=== PATIENT | male | born 1955 | race Asian ===

== ENCOUNTER 2018-10-13 08:05 | Outpatient (CLI) | payer OTHER ==
[2018-10-11 16:05] LABS: CALCIUM 9.6 mg/dL (8.4-11.0); CREATININE 0.92 mg/dL (0.55-1.30); POTASSIUM 4.2 mmol/L (3.5-5.1)
[2018-10-13] MEDS ORDERED: DIATR MEGLU/DIATRIZ SOD 30 ML SOLUTION PO ONE (08:31)
[2018-10-13] MEDS ORDERED: IOHEXOL 100 ML IV ONE (10:00)
== END 2018-10-13 19:16 | disposition home or self-care (01) ==
LOC: SLB 08:05
DX: K57.90 Diverticulosis of intestine, part unspecified, without perforation or abscess without bleeding (principal); R31.29 Other microscopic hematuria; N40.0 Benign prostatic hyperplasia without lower urinary tract symptoms; N28.1 Cyst of kidney, acquired
CPT/HCPCS: 36415; 74178; 80048; Q9964; Q9967

== ENCOUNTER 2018-12-05 09:39 | Outpatient (CLI) | payer OTHER ==
[2018-12-05 11:12] LABS: CALCIUM 9.1 mg/dL (8.4-11.0); CREATININE 0.94 mg/dL (0.55-1.30); POTASSIUM 4.1 mmol/L (3.5-5.1)
== END 2018-12-05 21:42 | disposition home or self-care (01) ==
LOC: SCA 09:39
PROVIDERS: ATTEND Specialist
DX: I35.1 Nonrheumatic aortic (valve) insufficiency (principal); I11.9 Hypertensive heart disease without heart failure
CPT/HCPCS: 36415; 80048; 93306

== ENCOUNTER 2019-01-24 12:41 | Outpatient (CLI) | payer OTHER ==
[2019-01-24] MEDS ORDERED: DIATR MEGLU/DIATRIZ SOD 30 ML SOLUTION PO ONE (12:56)
== END 2019-01-24 21:16 | disposition home or self-care (01) ==
LOC: SCT 12:41
PROVIDERS: ATTEND Surgery
DX: K57.90 Diverticulosis of intestine, part unspecified, without perforation or abscess without bleeding (principal); N28.1 Cyst of kidney, acquired
CPT/HCPCS: 74176; Q9964

== ENCOUNTER 2019-06-08 08:36 | Outpatient (CLI) | payer OTHER | END 2019-06-08 14:00 | disposition home or self-care (01) | LOC: SUS 08:36 | PROVIDERS: ATTEND Surgery | DX: N28.1 Cyst of kidney, acquired (principal) | CPT/HCPCS: 76700-TC ==

== ENCOUNTER 2019-06-12 09:17 | Outpatient (CLI) | payer OTHER | END 2019-06-12 20:51 | disposition home or self-care (01) | LOC: SMI 09:17 | PROVIDERS: ATTEND Surgery | DX: K80.80 Other cholelithiasis without obstruction (principal); N28.1 Cyst of kidney, acquired | CPT/HCPCS: 74181 ==

== ENCOUNTER 2019-12-02 17:56 | Emergency (ER) | payer OTHER ==
[~2019-12-02] VITALS: Ht 154.9 cm; Wt 97.5 kg
[2019-12-02 18:23] VITALS: BP_SYST 145
--- NOTE | 2019-12-02 19:15 | NUR ---
Dr. Huerta bedside for pt eval
--- NOTE | 2019-12-02 19:15 | NUR ---
Patient to ER bed 7 to gown for evaluation. Side rails up.
--- NOTE | 2019-12-02 19:19 | NUR ---
Pt BIB family to ED with history of glaucoma and bilateral eye surgery, presenting with bilateral eye itchiness since ~2 hours prior to arrival. He believes symptoms are due to having touched items outside and rubbing his eyes afterwards No other complaints VSS no s/s of acute distress Resting on gurney rails up
[2019-12-02 19:24] VITALS: BP_SYST 142
--- NOTE | 2019-12-02 19:24 | NUR ---
Patient given written and verbal discharge instructions and verbalizes understanding. ER MD discussed with patient the results and treatment provided. Patient in stable condition. ID arm band removed. Rx of Zyrtec and Tobradex eyedrop given. Patient educated on pain management and to follow up with PMD. Pain Scale 0/10 Opportunity for questions provided and answered. Medication side effect fact sheet provided.
--- NOTE | 2019-12-02 19:30 | NUR ---
Escobar foster in [facility] - 12/02/19 at 1933 by AURELIO Patient to bed [facility] for evaluation. Side rails up.
--- NOTE | 2019-12-02 19:32 | NUR ---
Escobar foster in [facility] - 12/02/19 at 1933 by AURELIO Lab at bedside for blood draw, well tolerated
== END 2019-12-02 19:24 | disposition home or self-care (01) ==
LOC: SED 17:56
DX: H10.89 Other conjunctivitis (principal); I10 Essential (primary) hypertension; G47.00 Insomnia, unspecified; Z88.0 Allergy status to penicillin
CPT/HCPCS: 99283

== ENCOUNTER 2020-12-11 17:41 | Inpatient (IN) | payer OTHER, SELFPAY ==
[~2020-12-11] VITALS: Ht 154.9 cm; Wt 108.0 kg
[2020-12-11 17:41] VITALS: BP_SYST 160
[~2020-12-11 17:41] MED LIST: ASCO500T20 PO; ASPI-1393 PO; LISI40TA4 PO; PRO40 PO; SERT50TA12 PO; VITD2000 PO; ZINC220T4 PO
--- NOTE | 2020-12-11 17:41 | NUR ---
BROUGHT BACK TO BED #3 IMMEDIATELY, UPON ARRIVAL VIA WHEELCHAIR, AT BEDSIDE. PLACED IN BED #3 AND TRIAGED. REPORT GIVEN TO THAIS
[2020-12-11] MEDS ORDERED: ASPIRIN 81 MG TAB.CHEW PO ONE (17:45)
[2020-12-11] MEDS ORDERED: NITROGLYCERIN 1 INCH (GM) OINT. TP ONE (17:45)
[2020-12-11] MEDS ORDERED: ONDANSETRON HCL 4 MG/2 ML VIAL IVP ONE (17:45)
[2020-12-11] MEDS ORDERED: MORPHINE 2 MG/ML INJ. SYRINGE IVP ONE ×2 (17:45→20:00)
[2020-12-11] MEDS ORDERED: NACL 0.9% 1,000 ML IV ONE (17:45)
[2020-12-11 18:08] LABS: BASOPHILS # (AUTO) 0.1 K/uL (0.0-0.2); BASOPHILS % (AUTO) 1.2 % (0.0-2.0); EOSINOPHILS # (AUTO) 0.1 K/uL (0.0-0.4); EOSINOPHILS % (AUTO) 2.3 % (0.0-4.0); HEMATOCRIT 39.4 % (36-54); HEMOGLOBIN 12.9 g/dL (14.0-18.0); LYMPHOCYTES # (AUTO) 2.1 K/uL (1.0-5.5); LYMPHOCYTES % (AUTO) 33.4 % (20.5-51.5); MEAN CORPUSCULAR HEMOGLOBIN 30 pg (27-31); MEAN CORPUSCULAR HGB CONC 33 % (32-36); MEAN CORPUSCULAR VOLUME 92 fL (79.0-98.0); MONOCYTES # (AUTO) 0.4 K/uL (0.0-1.0); MONOCYTES % (AUTO) 7.2 % (1.7-9.3); NEUTROPHILS # (AUTO) 3.5 K/uL (1.8-7.7); NEUTROPHILS % (AUTO) 55.9 % (40.0-70.0); PLATELET COUNT (AUTO) 260 K/uL (130-430); RED BLOOD CELL COUNT(AUTO) 4.27 MIL/uL (4.2-6.2); RED CELL DISTRIBUTION WIDTH 16.8 % (9.0-15.0); WHITE BLOOD COUNT (AUTO) 6.2 K/uL (4.8-10.8)
--- NOTE | 2020-12-11 18:09 | NUR ---
PROTABLE CXR DONE AT [facility].
[2020-12-11] MEDS ORDERED: PANTOPRAZOLE SODIUM 40 MG/VIAL (PROTONIX) IVP ONE (18:15)
[2020-12-11 18:18] LABS: ANION GAP 7 (5-15); CALCIUM 9.3 mg/dL (8.4-11.0); CHLORIDE 104 mmol/L (98-107); GLUCOSE 121 mg/dL (70-99); POTASSIUM 3.7 mmol/L (3.5-5.1); SODIUM SERUM 140 mmol/L (136-145); UREA NITROGEN, BLOOD 9 mg/dL (8-21)
[2020-12-11 18:21] LABS: GFR AFRICAN AMERICAN 86 mL/min (>90)
[2020-12-11 18:26] LABS: INR 0.9 (0.80-1.20); PROTHROMBIN TIME 9.6 SECS (9.5-12.5)
[2020-12-11 18:30] LABS: ALANINE AMINOTRANSFERASE 1109 U/L (12-78); ALBUMIN 3.6 g/dL (3.4-4.8); ASPARTATE AMINOTRANSFERASE 719 U/L (10-37); TOTAL BILIRUBIN 3.1 mg/dL (0.0-1.0)
--- NOTE | 2020-12-11 18:34 | NUR ---
DR ARAGON IN TO REASSESS
--- NOTE | 2020-12-11 18:35 | NUR ---
AT BEDSIDE, PT CALM, ALERT, CLEAR MENTATION AND SPEECH, COMMUNICATES IN CALM, FULL COMPLETE SENTNECES, SKIN WARM AND DRY. SR ON MONITOR NO ECTOPY. RESP UNLABORED,
--- NOTE | 2020-12-11 19:06 | NUR ---
AT BEDSIDE, PT CALM, STATES FELLING BETTER, RESP UNLABORED. PAIN 6/
--- NOTE | 2020-12-11 19:13 | NUR ---
CONSENT SIGNED FOR CTA
--- NOTE | 2020-12-11 19:22 | NUR ---
BEDSIDE REPORT TAKEN FROM RESEARCH TECHNOLOGISTTREY PLASCENCIA
[2020-12-11] MEDS ORDERED: IOHEXOL 350 mgI/mL, 150 ML INFUS..BTL IV ONE (19:30)
[2020-12-11] MEDS ORDERED: hydrALAZINE HCL 20 MG/ML VIAL IVP PRN (20:45)
[2020-12-11] MEDS ORDERED: ONDANSETRON HCL 4 MG/2 ML VIAL IVP PRN (20:45)
[2020-12-11] MEDS ORDERED: IPRATROPIUM/ALBUTEROL SULFATE 3 ML AMPUL.NEB (DUONEB) INH PRN (20:45)
--- NOTE | 2020-12-11 21:10 | NUR ---
BEDSIDE PRABHU COVID SWAB PERFORMED SAMPLE SENT TO LAB PT TOLERATED WELL
--- NOTE | 2020-12-11 22:00 | NUR ---
PT RESTING QUIETLY IN BED VITALS STABLE WILL CONTINUE TO MONITOR
--- NOTE | 2020-12-11 22:55 | NUR ---
Patient will be admitted to care of MD Cruz SHARIF. Admitted to TELE unit. Will go to room 109-C. Belongings TAKEN HOME BY PT FAMILY MEMEBR BEFORE ABLE TO INVENTORY. Complete and up to date summary report printed. SBAR report given at bedside with opportunity for questions TO LEAD COATER TORIBIO.
--- NOTE | 2020-12-11 23:05 | NUR ---
ADMISSION NOTE Received patient from ER via gurney. Patient admitted with diagnosis of pancreatitis. Patient is awake, alert, oriented X 4. Patient oriented to hospital room, call light, toileting, pain management and safety-teach back done. Patient informed that Opal/Becca will be his nurse and that their room number is 109C. Personal belongings checked and Belongings List documented. Call light within reach.
[2020-12-11 23:11] VITALS: BP_SYST 115
[2020-12-11] MEDS: D5/0.45 NS 1,000 ML IV SCH (23:23)
[2020-12-11] MEDS ORDERED: TAMS-11 PO (23:25)
--- NOTE | 2020-12-12 | NUR ---
RN Rounds VSS. Pt is sleeping with BIPAP on.
[2020-12-12 00:48] VITALS: BP_SYST 115
--- NOTE | 2020-12-12 03:17 | NUR ---
CONSULTATION PAGED/CALLED Reason for Consultation: ACUTE PANCREATITIS Person Who was Notified: CATHI Consulting Physician: DR. DUMONT- DR. REGALADO IS ONCALL Tablet Technician Specialty: GI Ordering Physician: DR. LOWE
[2020-12-12] MEDS: MORPHINE 4 MG/ML INJ. SYRINGE IVP PRN ×4 (04:30→22:54)
--- NOTE | 2020-12-12 04:30 | NUR ---
Pain med given for pain 7/10 in abdomen. Will follow up
--- NOTE | 2020-12-12 06:46 | NUR ---
Closing Note Pt awake and alert resting in bed A&O x4. IVF running on RAC 18G at ordered rate. Pt breathing nonlabored to O2 via 1LNC. Pt remain NPO per orders. Pt educated regarding call light. Pt using urinal. Bed locked in lowest position. Will continue to monitor until care endorsed to dayshift RN.
[2020-12-12 07:10] LABS: BASOPHILS % (AUTO) 0.2 % (0.0-2.0); EOSINOPHILS % (AUTO) 0.4 % (0.0-4.0); HEMATOCRIT 36.9 % (36-54); HEMOGLOBIN 12.1 g/dL (14.0-18.0); LYMPHOCYTES # (AUTO) 1.2 K/uL (1.0-5.5); LYMPHOCYTES % (AUTO) 15.4 % (20.5-51.5); MEAN CORPUSCULAR HEMOGLOBIN 31 pg (27-31); MEAN CORPUSCULAR HGB CONC 33 % (32-36); MEAN CORPUSCULAR VOLUME 93 fL (79.0-98.0); MONOCYTES # (AUTO) 0.5 K/uL (0.0-1.0); MONOCYTES % (AUTO) 6.7 % (1.7-9.3); NEUTROPHILS # (AUTO) 5.8 K/uL (1.8-7.7); NEUTROPHILS % (AUTO) 77.3 % (40.0-70.0); PLATELET COUNT (AUTO) 220 K/uL (130-430); RED BLOOD CELL COUNT(AUTO) 3.97 MIL/uL (4.2-6.2); RED CELL DISTRIBUTION WIDTH 16.8 % (9.0-15.0); WHITE BLOOD COUNT (AUTO) 7.5 K/uL (4.8-10.8)
--- NOTE | 2020-12-12 07:10 | NUR ---
opening note received sbar from night RN, patient in bed respirations even, non labored bed in low and locked position call light within reach,
[2020-12-12 07:35] LABS: ALBUMIN 3.2 g/dL (3.4-4.8); CALCIUM 8.7 mg/dL (8.4-11.0); CREATININE 1.11 mg/dL (0.55-1.30)
[2020-12-12 08:00] VITALS: BP_SYST 120
--- NOTE | 2020-12-12 08:00 | NUR ---
nurse note obtained patient vs, patient in bed, respirations even, non labored bed in low and locked position call light within reach,
[2020-12-12 08:09] LABS: TOTAL BILIRUBIN 1.3 mg/dL (0.0-1.0)
--- NOTE | 2020-12-12 08:52 | NUR ---
critical paged Dr Rosa regarding critical lab lipase [phone]
--- NOTE | 2020-12-12 08:56 | NUR ---
GI MD DR REGALADO WAS CALLED, RE: CRITICAL LABS, SPOKE TO RAMÍREZ.
[2020-12-12] MEDS: D5/0.45 NS 1,000 ML IV SCH ×3 (09:47→22:31)
--- NOTE | 2020-12-12 10:00 | NUR ---
NURSE NOTE PATIENT COMPLAINING OF PAIN 7- REPOSITIONED PATIENT, PROVIDED MEDICATION
--- NOTE | 2020-12-12 10:10 | NUR ---
critical lab informed dr Rosa of critical lab, lipase, [phone], no new orders received
--- NOTE | 2020-12-12 12:00 | NUR ---
NURSE NOTE PATIENT IN BED, RESPIRATIONS EVEN NON LABORED BED IN LOW AND LOCKED POSITION CALL LIGHT WITHIN REACH
[2020-12-12 12:16] VITALS: BP_SYST 139
--- NOTE | 2020-12-12 16:00 | NUR ---
NURSE NOTE PATIENT IN BED, RESPIRATIONS EVEN, NON LABORED, BED IN LOW AND LOCKED POSITION CALL LIGHT WITHIN REACH, IVF RUNNING ORDERED
[2020-12-12 16:17] VITALS: BP_SYST 142
--- NOTE | 2020-12-12 17:40 | NUR ---
ATTENDNG Leonardo GARCIA DR WAS CALLED, RE: SURGICAL CONSULT. LEFT A VOICE MESSAGE ON HIS CP AND OFFICE.
--- NOTE | 2020-12-12 18:04 | NUR ---
Dietitian Recommendations * Consider early EN support as tolerated or TPN/PPN support within 2 days LP, RD Please refer to Nutrition Assessment for details. Addendum: 12/12/20 at [address] Amended: Links added.
--- NOTE | 2020-12-12 18:36 | NUR ---
nurse note spoke with dr Nolan, informed him that Dr Rosa would like a surgical consult on the patient, new orders received
--- NOTE | 2020-12-12 18:56 | NUR ---
CONSULTATION PAGED/CALLED Reason for Consultation: Pancreatitis Person Who was Notified: Cari Consulting Physician: Dr. Durham Tanning Solution Maker Specialty: surgeon Ordering Physician: Dr. Redd
--- NOTE | 2020-12-12 19:19 | NUR ---
closing note provided sbar to night RN, patient in bed respirations even, non labored, bed in low and locked position, call light within reach, ivf's running as ordered, endorsed care to night RN
--- NOTE | 2020-12-12 19:30 | NUR ---
Opening notes/spoke with Dr. Nolan Received report. Patient is resting in bed, no signs of distress noted. Breathing even and unlabored on 2 L NC. IV patent and intact, infusing fluids. Spoke with Dr. Nolan, informed MD that patient needs medication for breakthrough pain. MD changed frequency of current PRN and new orders received. MD wants patient to be on continuous pulse ox due to patient having sleep apnea and is on narcotics. Orders input by RN.
[2020-12-12] MEDS ORDERED: NALOXONE HCL 0.4 MG/ML AMP (NARCAN) IVP PRN (19:45)
[2020-12-12 20:00] VITALS: BP_SYST 160
--- NOTE | 2020-12-12 21:05 | NUR ---
IV removed Patient complains of pain to RAC IV. IV removed. Catheter intact and discarded. Fluids resumed on Left Hand 22 gauge. Patient is ambulatory with steady gait. No signs of distress noted.
[2020-12-13] VITALS: BP_SYST 140
--- NOTE | 2020-12-13 01:00 | NUR ---
CPAP Pt placed on CPAP per patient request. No signs of distress noted. Breathing even and unlabored. No other needs. Call light with the patient. Safety precautions in place.
[2020-12-13] MEDS: MORPHINE 4 MG/ML INJ. SYRINGE IVP PRN ×3 (05:14→16:19)
--- NOTE | 2020-12-13 06:52 | NUR ---
Closing notes Patient is resting in bed, no signs of distress noted. Breathing even and unlabored on 2 L NC. IV patent and intact, infusing fluids. No complaints of pain at this time. NPO status maintained. Awaiting surgical consult, patient aware. All needs met throughout the shift. Call light with the patient. Safety precautions in place. Will endorse care to day shift RN.
--- NOTE | 2020-12-13 07:35 | NUR ---
OPENING NOTES: RECEIVED PATIENT ON GIS ANALYST DEVELOPER NURSE. PATIENT IS AWAKE LAYING DOWN IN BED. PATIENT IS TOLERATING OXYGEN ON 2L NASAL CANNULA WITH NO DISTRESS NOTED. IV LINE PATENT AND INTACT WITH NO SIGNS OF INFILTRATION NOTED. PATIENT DENIES PAIN AT THE MOMENT. PATIENT IN STABLE CONDITION. SAFETY, FALL, AND ASPIRATION PRECAUTIONS ARE IN PLACE. BED LOCKED IN LOWEST POSITION WITH CALL LIGHT IN REACH. WILL CONTINUE TO MONITOR PATIENT FOR ANY CHANGES.
[2020-12-13 08:00] VITALS: BP_SYST 155
[2020-12-13 08:30] LABS: BILIRUBIN,DIRECT 0.4 mg/dL (0.0-0.3); TOTAL BILIRUBIN 1.1 mg/dL (0.0-1.0)
[2020-12-13] MEDS: D5/0.45 NS 1,000 ML IV SCH ×2 (08:32→21:06)
[2020-12-13 11:07] LABS: HEPATITIS A AB, IgM Negative (Negative); HEPATITIS B CORE AB, IgM Negative (Negative); HEPATITIS B SURFACE AG Negative (Negative)
--- NOTE | 2020-12-13 11:34 | NUR ---
PAGED FLORIAN RAMOS PAGED AT [phone] SPOKE WITH NIDA.
[2020-12-13 12:23] VITALS: BP_SYST 163
--- NOTE | 2020-12-13 14:20 | NUR ---
SPOKE TO DR. LOWE AND PHARMACY INSPITE OF PATIENT ALLERGY TO PCN IS OK TO GIVE ROCEPHIN IV ORDERED.
--- NOTE | 2020-12-13 14:22 | NUR ---
IV INSERTION: PERIPHERAL IV INSERTION DONE AT LEFT ARM GAUGE 22. ASEPTIC TECNIQUE OBSERVED. PATIENT TOLERATED IT WELL. BACK FLOW OF BLOOD NOTED. FLUSHING DONE. NO PAIN OR INFILTRATION ON THE SITE. WILL CONTINUE TO MONITOR PATIENT.
[2020-12-13] MEDS: cefTRIAXone 1 GM IVPB PREMIX 50 ML IV SCH (15:59)
[2020-12-13 16:11] VITALS: BP_SYST 152
--- NOTE | 2020-12-13 18:40 | NUR ---
CLOSING NOTES: PATIENT IS AWAKE LAYING DOWN IN BED. PATIENT IS TOLERATING OXYGEN ON 2L NASAL CANNULA WITH NO DISTRESS NOTED. IV LINE PATENT AND INTACT WITH NO SIGNS OF INFILTRATION NOTED. PATIENT DENIES PAIN AT THE MOMENT. PATIENT IN STABLE CONDITION. SAFETY, FALL, AND ASPIRATION PRECAUTIONS REMAINED IN PLACE. BED LOCKED IN LOWEST POSITION WITH CALL LIGHT IN REACH. WILL ENDORSE PATIENT CARE ON ONCOMING INSURANCE FOLLOW UP REPRESENTATIVE NURSE.
[2020-12-13] MEDS ORDERED: INSULIN REGULAR, HUMAN 100 UNITS/ML, 10 ML VIAL (humuLIN R) SUBCUT PRN (19:00)
[2020-12-13] MEDS ORDERED: DEXTROSE 50% JECT 50 ML DISP.SYRIN IVP PRN (19:00)
[2020-12-13] MEDS ORDERED: *PPN PER PHARMACY XX PRN (19:00)
--- NOTE | 2020-12-13 19:30 | NUR ---
INITIAL NOTE: RECEIVED REPORT FROM ESTEFANY RN. PATIENT IS SITTING UP AT BED. NO ACUTE DISTRESS. EVEN AND NONLABORED RESPIRATIONS ON ROOM AIR. IV SITE IS PATENT AND INTACT. BED IS LOCKED AT LOWEST POSITION. SIDE RAILS UP. CALL LIGHT IS WITH PATIENT. SAFETY AND FALL PRECAUTIONS IN PLACE. WILL CONTINUE WITH PLAN OF CARE.
[2020-12-13 20:00] VITALS: BP_SYST 143
--- NOTE | 2020-12-13 21:43 | NUR ---
IV RE-INSERTION: Complaining of pain to IV site. Restarted on RIGHT FOREARM #22. Successful after 1 attempts. Resumed current IVF of D5 1/2NS and regulated @ 100 per hour. Will observe for any signs of infiltration.
--- NOTE | 2020-12-13 23:49 | NUR ---
ROUNDS: PATIENT IS RESTING IN BED. FINGERSTICK AND MIDNIGHT VITALS DONE AT THIS TIME. RESPIRATIONS ARE EVEN AND NONLABORED ON ROOM AIR. CALL LIGHT IS WITH PATIENT. SAFETY AND FALL PRECAUTIONS IN PLACE.
[2020-12-14] VITALS: BP_SYST 143
--- NOTE | 2020-12-14 02:15 | NUR ---
ROUNDS: PATIENT REQUESTED A WARM BLANKET AT THIS TIME. NO ACUTE DISTRESS. BREATHING IS EVEN AND UNLABORED ON ROOM AIR. CALL LIGHT IS WITH PATIENT. SAFETY AND FALL PRECAUTIONS IN PLACE.
--- NOTE | 2020-12-14 02:30 | NUR ---
CONSULT: CONSULT CALLED FOR DR. FONSECA I SPOKE WITH EVANGELIST TAYLOR REASON FOR CONSULT: HIGH BLOOD PRESURE REQUESTING CONSULT: DR. RUBI DU OPTICAL LABORATORY TECHNICIAN PHONE NUMBER: [phone]
--- NOTE | 2020-12-14 04:43 | NUR ---
ROUNDS: PATIENT IS SLEEPING IN BED. NO S/S OF ACUTE DISTRESS. RESPIRATIONS ARE EVEN AND NONLABORED. CALL LIGHT IS WITH PATIENT. SAFETY AND FALL PRECAUTIONS IN PLACE.
[2020-12-14] MEDS: MORPHINE 4 MG/ML INJ. SYRINGE IVP PRN ×2 (05:35→19:59)
--- NOTE | 2020-12-14 06:06 | NUR ---
CLOSING NOTE: PATIENT IS RESTING IN BED. NO S/S OF ACUTE DISTRESS. EVEN AND NONLABORED BREATHING ON ROOM AIR. IV SITE IS PATENT AND INTACT. BED IS LOCKED AT LOWEST POSITION. SIDE RAILS UP. CALL LIGHT IS WITH PATIENT. SAFETY AND FALL PRECAUTIONS IN PLACE. WILL ENDORSE CARE TO DAYSHIFT RN. Addendum: 12/14/20 at 0608 by Josefina Thapa RN ALL NEEDS MET.
[2020-12-14 06:28] LABS: BASOPHILS % (AUTO) 0.4 % (0.0-2.0); EOSINOPHILS # (AUTO) 0.2 K/uL (0.0-0.4); EOSINOPHILS % (AUTO) 2.6 % (0.0-4.0); HEMATOCRIT 39.5 % (36-54); HEMOGLOBIN 13.1 g/dL (14.0-18.0); LYMPHOCYTES # (AUTO) 1.2 K/uL (1.0-5.5); LYMPHOCYTES % (AUTO) 14.6 % (20.5-51.5); MEAN CORPUSCULAR HEMOGLOBIN 31 pg (27-31); MEAN CORPUSCULAR HGB CONC 33 % (32-36); MEAN CORPUSCULAR VOLUME 92 fL (79.0-98.0); MONOCYTES # (AUTO) 0.7 K/uL (0.0-1.0); MONOCYTES % (AUTO) 9.4 % (1.7-9.3); NEUTROPHILS # (AUTO) 5.8 K/uL (1.8-7.7); PLATELET COUNT (AUTO) 199 K/uL (130-430); RED BLOOD CELL COUNT(AUTO) 4.27 MIL/uL (4.2-6.2); RED CELL DISTRIBUTION WIDTH 16.7 % (9.0-15.0); WHITE BLOOD COUNT (AUTO) 7.9 K/uL (4.8-10.8)
[2020-12-14 07:17] LABS: ALBUMIN 3.1 g/dL (3.4-4.8); CALCIUM 8.8 mg/dL (8.4-11.0); CREATININE 0.94 mg/dL (0.55-1.30); TOTAL BILIRUBIN 1.1 mg/dL (0.0-1.0)
--- NOTE | 2020-12-14 07:40 | NUR ---
OPENING NOTES: RECEIVED PATIENT ON HEAT TREAT TECHNICIAN NURSE. PATIENT IS AWAKE LAYING DOWN IN BED. PATIENT IS TOLERATING OXYGEN ON 2L NASAL CANNULA WITH NO DISTRESS NOTED. IV LINE PATENT AND INTACT WITH NO SIGNS OF INFILTRATION NOTED. PATIENT DENIES PAIN AT THE MOMENT. PATIENT IN STABLE CONDITION. SAFETY, FALL, AND ASPIRATION PRECAUTIONS ARE IN PLACE. BED LOCKED IN LOWEST POSITION WITH CALL LIGHT IN REACH. WILL CONTINUE TO MONITOR PATIENT FOR ANY CHANGES.
[2020-12-14] MEDS: D5/0.45 NS 1,000 ML IV SCH ×3 (08:14→21:00)
--- NOTE | 2020-12-14 10:21 | NUR ---
CM Note: Planning for Lap Choley possible on Tuesday, pending cardiology and pulmo clearance.
[2020-12-14 10:34] LABS: PHOSPHORUS 3.8 mg/dL (2.7-4.5)
[2020-12-14 12:00] VITALS: BP_SYST 150
[2020-12-14] MEDS: cefTRIAXone 1 GM IVPB PREMIX 50 ML IV SCH (15:00)
[2020-12-14 16:56] VITALS: BP_SYST 151
--- NOTE | 2020-12-14 18:56 | NUR ---
CLOSING NOTES: PATIENT IS AWAKE LAYING DOWN IN BED. PATIENT IS TOLERATING OXYGEN ON 2L NASAL CANNULA WITH NO DISTRESS NOTED. IV LINE PATENT AND INTACT WITH NO SIGNS OF INFILTRATION NOTED. PATIENT DENIES PAIN AT THE MOMENT. PATIENT IN STABLE CONDITION. SAFETY, FALL, AND ASPIRATION PRECAUTIONS REMAINED IN PLACE. BED LOCKED IN LOWEST POSITION WITH CALL LIGHT IN REACH. WILL ENDORSE PATIENT CARE TO RESIDENTIAL GREEN BUILDING DESIGNER NURSE.
--- NOTE | 2020-12-14 19:30 | NUR ---
INITIAL NOTE: RECEIVED REPORT FROM ESTEFANY RN. PATIENT IS RESTING IN BED. NO ACUTE DISTRESS. EVEN AND NONLABORED RESPIRATIONS ON ROOM AIR. IV SITE IS PATENT AND INTACT. BED IS LOCKED AT LOWEST POSITION. SIDE RAILS UP. CALL LIGHT IS WITH PATIENT. SAFETY AND FALL PRECAUTIONS IN PLACE. WILL CONTINUE WITH PLAN OF CARE.
[2020-12-14 20:00] VITALS: BP_SYST 134
--- NOTE | 2020-12-14 20:45 | NUR ---
IV RE-INSERTION: Complaining of pain to IV site. Restarted on LEFT FOREARM #22 AND RIGHT BICEP #20 Will observe for any signs of infiltration.
[2020-12-14] MEDS ORDERED: TPN PERIPHERAL IV SCH ×7 (21:00)
[2020-12-14] MEDS ORDERED: SODIUM ACETATE IV SCH ×7 (21:00)
[2020-12-14] MEDS ORDERED: FAT EMULSIONS 250 ML IV SCH (21:00)
[2020-12-14] MEDS ORDERED: POTASSIUM CHLORIDE IV SCH ×7 (21:00)
[2020-12-14] MEDS ORDERED: [UNRECOGNIZED DRUG - OTHER] IV SCH ×7 (21:00)
[2020-12-14 21:08] LABS: BILIRUBIN,URINE NEGATIVE (NEGATIVE); BLOOD, URINE 2+ (NEGATIVE); CLARITY/URINE CLEAR (CLEAR); COLOR,URINE YELLOW (YELLOW); GLUCOSE,URINE NEGATIVE (NEGATIVE); KETONES,URINE 2+ (NEGATIVE); LEUKOCYTE ESTERASE ,URINE NEGATIVE (NEGATIVE); NITRITE, URINE NEGATIVE (NEGATIVE); PROTEIN URINE NEGATIVE (NEGATIVE)
[2020-12-14 21:20] LABS: BACTERIA,URINE RARE /HPF (None Seen); MUCUS,URINE None Seen /LPF (None Seen); WBC,URINE 0-3 /HPF (0-3)
--- NOTE | 2020-12-14 23:40 | NUR ---
ROUNDS: PATIENT IS RESTING IN BED. MIDNIGHT VITALS AND ACCUCHECK PERFORMED AT THIS TIME. NO ACUTE DISTRESS. BREATHING IS EVEN AND NONLABORED ON ROOM AIR. CALL LIGHT IS WITH PATIENT. SAFETY AND FALL PRECAUTIONS IN PLACE.
[2020-12-15] VITALS: BP_SYST 130
--- NOTE | 2020-12-15 02:05 | NUR ---
ROUNDS: PATIENT IS UP TO THE BATHROOM AT THIS TIME. NO SIGNS OF ACUTE DISTRESS. RESPIRATIONS ARE EVEN AND NONLABORED ROOM AIR. CALL LIGHT IS WITH PATIENT. SAFETY AND FALL PRECAUTIONS.
--- NOTE | 2020-12-15 04:38 | NUR ---
ROUNDS: PATIENT IS SLEEPING IN BED. SHOWING NO SIGNS OF ACUTE DISTRESS. RESPIRATIONS ARE EVEN AND UNLABORED. CALL LIGHT IS WITH PATIENT. SAFETY, AND FALL PRECAUTIONS IN PLACE.
--- NOTE | 2020-12-15 06:22 | NUR ---
CLOSING NOTE: PATIENT IS RESTING IN BED. NO SIGNS OF ACUTE DISTRESS. EVEN, UNLABORED RESPIRATIONS ON ROOM AIR. IV SITES ARE PATENT AND INTACT. ALL NEEDS MET. BED IS LOCKED AT LOWEST POSITION. SIDE RAILS UP. CALL LIGHT IS WITH PATIENT. SAFETY AND FALL PRECAUTIONS IN PLACE. WILL ENDORSE CARE TO DAYSHIFT RN.
[2020-12-15 07:02] LABS: ALBUMIN 3.1 g/dL (3.4-4.8); CALCIUM 9.1 mg/dL (8.4-11.0); CREATININE 0.86 mg/dL (0.55-1.30); PHOSPHORUS 3.8 mg/dL (2.7-4.5); POTASSIUM 3.8 mmol/L (3.5-5.1); TOTAL BILIRUBIN 0.9 mg/dL (0.0-1.0)
--- NOTE | 2020-12-15 07:50 | NUR ---
Opening note Patient is laying in bed A&O x4, denies pain or discomfort. Educated patient on plan of care and call light system, patient verbalized understanding. IV line is patent and infusing well, no s/s infiltration - TPN and Lipids infusing. Bed in lowest position, two side rails up, call light placed within reach, fall and aspiration precautions in place.
[2020-12-15 08:44] VITALS: BP_SYST 130
[2020-12-15 09:12] VITALS: BP_SYST 134
--- NOTE | 2020-12-15 11:30 | NUR ---
Patient off the unit stable condition, on room air, IV line is patent, no s/s of infiltration.
--- NOTE | 2020-12-15 11:36 | NUR ---
rt notes 1136 pt on 2LNC, resting while waiting for Surgery at 12noon. Pt asked RT to remove the BIPAP machine and would rather use his own. Bipap mask/tubing left at bedside. RT explained to pt that his own CPAP machine needs to be checked out by [facility] before he can use, pt verbalized to understand. will endorse to NOC RT. will continue to monitor pt.
[2020-12-15] MEDS ORDERED: ROCURONIUM BROMIDE 10 MG/ML (ZEMURON) IV ONE (11:53)
[2020-12-15] MEDS ORDERED: NS 1000 ML IV.SOLN IV ONE (11:53)
[2020-12-15] MEDS ORDERED: fentaNYL CITRATE 250 MCG/5 ML AMP IV ONE (11:53)
[2020-12-15] MEDS ORDERED: ePHEDrine sulfate 50 MG/ML VIAL IVP ONE (11:53)
[2020-12-15] MEDS ORDERED: BUPIVACAINE /EPINEPHRINE/PF 0.25% 30 ML VIAL INJ ONE (11:53)
[2020-12-15] MEDS ORDERED: MIDAZOLAM HCL 5 MG/5 ML VIAL IVP ONE (11:53)
[2020-12-15] MEDS ORDERED: DESFLURANE 15 MIN GAS INH ONE (11:53)
[2020-12-15] MEDS ORDERED: LR 1,000 ML IV.SOLN IV ONE (11:53)
[2020-12-15] MEDS ORDERED: PROPOFOL 200MG/ 20ML VIAL (DIPRIVAN) IV ONE (11:53)
[2020-12-15] MEDS ORDERED: SUGAMMADEX SODIUM 200 MG/2 ML VIAL IV ONE (11:53)
[2020-12-15] MEDS ORDERED: KETOROLAC TROMETHAMINE 30 MG VIAL IVP ONE (11:53)
[2020-12-15] MEDS ORDERED: ONDANSETRON HCL 4 MG/2 ML VIAL IVP ONE (11:53)
[2020-12-15] MEDS ORDERED: LIDOCAINE 1% 10 MG/ML, 20 ML MDV INJ ONE (11:53)
[2020-12-15] MEDS ORDERED: DEXAMETHASONE SOD PHOSPHATE 4 MG/ML VIAL IVP ONE (11:53)
[2020-12-15 12:10] VITALS: BP_SYST 148
[2020-12-15] MEDS ORDERED: MEPERIDINE HCL/PF 25 MG/ML DISP.SYRIN IVP PRN (12:45)
[2020-12-15] MEDS ORDERED: METOCLOPRAMIDE HCL 10 MG/2 ML VIAL IVP PRN (12:45)
[2020-12-15] MEDS ORDERED: HYDROmorphone 1 MG INJ. 1 MG/ML AMPUL IVP PRN ×2 (12:45)
[2020-12-15] MEDS ORDERED: LR 1,000 ML IV SCH (12:45)
[2020-12-15] MEDS ORDERED: LABETALOL 100 MG/ 20ML VIAL IVP PRN (12:45)
[2020-12-15] MEDS ORDERED: MIDAZOLAM HCL 2 MG/2 ML VIAL (VERSED) IVP PRN (12:45)
[2020-12-15] MEDS ORDERED: ONDANSETRON HCL 4 MG/2 ML VIAL IVP PRN ×2 (12:45→14:45)
[2020-12-15] MEDS ORDERED: hydrALAZINE HCL 20 MG/ML VIAL IVP PRN (12:45)
--- NOTE | 2020-12-15 13:09 | NUR ---
Nutrition F/U Admit Dx: Acute Pancreatitis Medical History Comment: PMH: HTN and COPD on BiPAP per physician notes SARS-CoV-2 Ag (Rapid) Negative 12/11 Subjective Information: Pt seen sleeping soundly in bed earlier. RD s/w pt's primary RN at nursing unit who reported that pt is currently NPO a/w cholecystectomy. Pt is on NC or sometimes just room air per RN. Per EMR, MRCP showed no CBD stones. Per physician notes, pt is feeling well, no abdominal pain and is being kept NPO for surgery (laparoscopic or open cholecystectomy) this afternoon. Pt is on NC, BM 12/15 x1. Salvador scale is 22 and no skin issues documented. Abdomen is soft w/ active bowel sounds. Pt was kept NPO since admission and was started on PPN yesterday 12/14. RD rec to slowly advance PO diet once surgery is done vs PPN. May discontinue PN once diet is advanced. Current PN is not yet meeting adequate nutrition. Current nutrition support/diet order: NPO +PN D20 AA8.5 at 40ml/hr, IL20% at 5ml/hr via peripheral line. Provides w/ dextrose: 1137 Kcal, 41gm protein, 1080ml fluids and GIR 0.6gm CHO/kg/min Meets: 75% of lower end of estimated calorie needs and 54% of lower end of estimated protein needs. Pertinent Medications D5%/1/2NS at 100 ml/hr (408 kcal/day), morphine Pertinent Labs 12/15 BG 110H, POC BG 119H, TG 146 WNL Height:5 feet 1.00 inches Weight: 238 pounds/107.351647 kilograms Body Mass Index: 44.96 kg/m2 Estimated Energy Expenditure (kcals/day) 3953-5405 kcal/day (30-35 kcal/kg IBW d/t pancreatitis) Estimated Protein Required (g/day) 75-100 gm/day (1.5-2 gm/kg IBW d/t pancreatitis) Estimated Fluid Required (l/day) 1.5-1.8 L/day (1 ml/kcal/day d/t maintenance) Problem/Etiology/Signs/Symptoms Increased nutritional needs related to metabolic demands as evidenced by estimated nutritional requirements for pancreatitis. (*ongoing) Expected Outcomes/Goals - Monitor advancement of diet, appetite, and PO intakes w/ goal of pt meeting at least 50% of estimated nutritional needs, labs trending WNL, normal GI function, and skin integrity/wt maintenance Dietitian Recommendations * Recommend: D20% AA8.5% at 80ml/hr (goal rate) no lipid via peripheral line Provides w/ D5%IV: 1389 Kcal, 82gm protein, 1920ml (PN) and GIR 1.2gm CHO/kg/min Meets: 93% of lower end of estimated calorie needs and 82% of upper end of estimated protein needs. * Recommend: advance diet when medically appropriate. (Clear liquid diet) Follow Up High Risk: F/U in 2-3days
--- NOTE | 2020-12-15 13:21 | NUR ---
Dietitian Recommendations * Recommend: D20% AA8.5% at 80ml/hr (goal rate) no lipid via peripheral line Provides w/ D5%IV: 1389 Kcal, 82gm protein, 1920ml (PN) and GIR 1.2gm CHO/kg/min Meets: 93% of lower end of estimated calorie needs and 82% of upper end of estimated protein needs. * Recommend: advance diet when medically appropriate. (Clear liquid diet) Please see Nutrition F/U note for details LAVONNE WALTERS
[2020-12-15] MEDS: HYDROmorphone 1 MG INJ. 1 MG/ML AMPUL ONE ×2 (13:30→13:40)
--- NOTE | 2020-12-15 14:25 | NUR ---
Patient back on unit a/ox4, states he has pain, educated patient that he received pain medication in PACU prior to coming to unit, patient verbalized understanding, educated patient on pain medication frequency, he verbalized understanding, IV line is patent and infusing well, restarted TPN and Lipids, patient is on 2L via nasal cannula, oxygen saturation is 98% at this time, noted x4 surgical dressings on the abdomen, clean, dry and intact, continuing to monitor the patient, bed in lowest position, three side rails up, call light and belongings within reach of patient, bed alarm on, SCD's in place, fall and aspiration precautions in place.
[2020-12-15] MEDS: D5/0.45 NS 1,000 ML IV SCH (14:37)
[2020-12-15] MEDS ORDERED: NACL 0.9% 1,000 ML IV SCH (14:45)
[2020-12-15] MEDS ORDERED: ACETAMINOPHEN 325 MG TABLET PO PRN (14:45)
[2020-12-15] MEDS ORDERED: CEFAZOLIN 2 GM IVPB PREMIX 50 ML IV SCH (14:45)
[2020-12-15] MEDS ORDERED: NALOXONE HCL 0.4 MG/ML AMP (NARCAN) IVP PRN ×2 (14:45)
--- NOTE | 2020-12-15 14:55 | NUR ---
Dr. Ricks rounds assessed patient post op - explained to the patient the plan to advance the diet - Per Dr. Ricks taper down TPN and Lipids and start patient on clear liquids - continue clear liquids until tomorrow - advance to full liquids with Ensure tomorrow 12/16/20.
[2020-12-15] MEDS: cefTRIAXone 1 GM IVPB PREMIX 50 ML IV SCH (15:08)
[2020-12-15 16:10] VITALS: BP_SYST 141
--- NOTE | 2020-12-15 16:14 | NUR ---
Matthew Knox in Pharmacy due to the patient's allergy to PCN, Ancef is a questionable antibiotic, please ask for a new order, will follow up Addendum: 12/15/20 at 1637 by Félix Christiansen RN Received new orders for IV Levaquin - tello Knox in Pharmacy
--- NOTE | 2020-12-15 16:17 | NUR ---
Spoke with Dr. Rosa regarding new orders for clear liquid diet from Dr. Ricks and to taper down TPN and Lipids - per Dr. Rosa if Dr. Ricks is ordering this then he is okay with this plan, will follow up.
--- NOTE | 2020-12-15 16:33 | NUR ---
Ultrasound of Abdomen being performed at bedside at this time, patient tolerating well, continuing to monitor. Addendum: 12/15/20 at 1634 by Félix Christiansen RN Wrong patient*
[2020-12-15] MEDS: HYDROmorphone 1 MG INJ. 1 MG/ML AMPUL IVP PRN (18:36)
--- NOTE | 2020-12-15 18:58 | NUR ---
Closing Note Patient resting bed, denies pain or discomfort, IV line is patent and infusing well, all needs met. Bed in lowest position, three side rails up, call light in reach, fall and aspiration precaution in place. Will endorse report to women's apparel salesperson nurse.
--- NOTE | 2020-12-15 19:30 | NUR ---
OPENING NOTES Received report from TREY Heard. Patient resting in bed, AAOx4, breathing evenly and nonlabored on room air. Patient has an IV on the right upper arm, double lumen, 20g, TPN tapered down by morning shift, currently running at 29mL/hr, D5 1/2 NS @60mL/hr, patient tolerating it well. Educated patient on plan of care, fall/safety/aspiration precautions, call light system, patient stated understanding with return demonstration. Patient denies any pain at this time. Fall/safety/aspiration precautions, will continue to monitor. Addendum: 12/16/20 at 0405 by David Thakkar RN TPN reduced from 29mL to 25mL.
--- NOTE | 2020-12-15 19:33 | NUR ---
SPOKE WITH DR. LOWE, CLARIFIED IVF ORDERS, MD ORDERED TO STOP THE ORDER FOR NS @ 100, AND TO CONTINUE D5 1/2 NS @60.
[2020-12-15 20:01] VITALS: BP_SYST 142
--- NOTE | 2020-12-15 20:30 | NUR ---
ROUNDS Patient resting in bed, awake, breathing evenly and nonlabored on room air. TPN tapered down to 20mL/hr, IVF running, patient tolerating it well. Patient asked for some snacks which was provided. Patient denies any pain at this time. No s/s of distress at this time, no other needs at this time. Fall/safety/aspiration precautions, will continue to monitor.
[2020-12-15] MEDS ORDERED: TPN PERIPHERAL IV SCH ×8 (21:00)
[2020-12-15] MEDS ORDERED: POTASSIUM CHLORIDE IV SCH ×8 (21:00)
[2020-12-15] MEDS ORDERED: [UNRECOGNIZED DRUG - OTHER] IV SCH ×8 (21:00)
[2020-12-15] MEDS ORDERED: SODIUM ACETATE IV SCH ×8 (21:00)
[2020-12-15] MEDS ORDERED: HYDROcodone/ACETAMIN 5-325 MG TAB (NORCO/ VICODIN) ONE (22:16)
[2020-12-15] MEDS: HYDROcodone/ACETAMIN 5-325 MG TAB (NORCO/ VICODIN) PO PRN (22:19)
--- NOTE | 2020-12-15 22:19 | NUR ---
PAIN MEDICATION GIVEN Patient resting in bed, awake, breathing evenly and nonlabored on room air. TPN tapered down to 15mL/hr, IVF running, patient tolerating it well. Patient asked for some snacks which was provided. Patient complained of moderate pain, educated patient on pain medication, nonpharmacological interventions, patient stated understanding. Administered pain medication, patient tolerated it well. No other needs at this time. Fall/safety/aspiration precautions, will continue to monitor.
--- NOTE | 2020-12-16 00:30 | NUR ---
ROUNDS Patient resting in bed, awake, breathing evenly and nonlabored on room air. TPN tapered down to 5mL/hr, IVF running, patient tolerating it well. Assisted patient to the bathroom. Patient denies any pain at this time. No s/s of distress at this time, no other needs at this time. Fall/safety/aspiration precautions, will continue to monitor.
[2020-12-16 01:03] VITALS: BP_SYST 157
[2020-12-16] MEDS: HYDROmorphone 1 MG INJ. 1 MG/ML AMPUL IVP PRN ×2 (02:10→15:56)
--- NOTE | 2020-12-16 02:10 | NUR ---
PAIN MEDICATION GIVEN Patient resting in bed, awake, breathing evenly and nonlabored on room air. TPN was discontinued earlier, IVF running, patient tolerating it well. Patient asked for some snacks which was provided. Patient complained of severe pain, educated patient on pain medication, nonpharmacological interventions, patient stated understanding. Administered pain medication, patient tolerated it well. No other needs at this time. Fall/safety/aspiration precautions, will continue to monitor.
--- NOTE | 2020-12-16 04:17 | NUR ---
ROUNDS Patient resting in bed, eyes closed, breathing evenly and nonlabored on BIPAP. IVF running, patient tolerating it well. No s/s of distress at this time, no other needs at this time. Fall/safety/aspiration precautions, will continue to monitor.
[2020-12-16] MEDS: D5/0.45 NS 1,000 ML IV SCH (06:04)
--- NOTE | 2020-12-16 06:04 | NUR ---
CLOSING NOTES Patient resting in bed, awake, breathing evenly and nonlabored on room air. IVF running, patient tolerating it well, IVF bag replaced. Patient denies any pain at this time. No s/s of distress at this time, no other needs at this time. Needs met throughout the shift. Fall/safety/aspiration precautions, will endorse care to morning shift RN.
[2020-12-16 07:07] LABS: BASOPHILS % (AUTO) 0.1 % (0.0-2.0); EOSINOPHILS % (AUTO) 0.1 % (0.0-4.0); HEMATOCRIT 35.6 % (36-54); HEMOGLOBIN 11.6 g/dL (14.0-18.0); LYMPHOCYTES # (AUTO) 0.7 K/uL (1.0-5.5); LYMPHOCYTES % (AUTO) 8.2 % (20.5-51.5); MEAN CORPUSCULAR HEMOGLOBIN 30 pg (27-31); MEAN CORPUSCULAR HGB CONC 33 % (32-36); MEAN CORPUSCULAR VOLUME 93 fL (79.0-98.0); MONOCYTES # (AUTO) 0.5 K/uL (0.0-1.0); MONOCYTES % (AUTO) 5.2 % (1.7-9.3); NEUTROPHILS # (AUTO) 7.7 K/uL (1.8-7.7); NEUTROPHILS % (AUTO) 86.4 % (40.0-70.0); PLATELET COUNT (AUTO) 237 K/uL (130-430); RED BLOOD CELL COUNT(AUTO) 3.84 MIL/uL (4.2-6.2); RED CELL DISTRIBUTION WIDTH 16.2 % (9.0-15.0); WHITE BLOOD COUNT (AUTO) 8.9 K/uL (4.8-10.8)
[2020-12-16 07:26] LABS: ALBUMIN 2.9 g/dL (3.4-4.8); CALCIUM 8.6 mg/dL (8.4-11.0); CREATININE 0.95 mg/dL (0.55-1.30); PHOSPHORUS 3.8 mg/dL (2.7-4.5); POTASSIUM 4.4 mmol/L (3.5-5.1); TOTAL BILIRUBIN 0.6 mg/dL (0.0-1.0)
[2020-12-16 08:00] VITALS: BP_SYST 152
[2020-12-16] MEDS ORDERED: HYDROcodone/ACETAMIN 5-325 MG TAB (NORCO/ VICODIN) ONE (08:12)
[2020-12-16] MEDS: HYDROcodone/ACETAMIN 5-325 MG TAB (NORCO/ VICODIN) PO PRN (08:15)
[2020-12-16 12:20] VITALS: BP_SYST 145
[2020-12-16 12:35] VITALS: BP_SYST 152
[2020-12-16] MEDS: cefTRIAXone 1 GM IVPB PREMIX 50 ML IV SCH (15:03)
[2020-12-16 16:15] VITALS: BP_SYST 149
--- NOTE | 2020-12-16 16:42 | NUR ---
Incision care Incision dressings changed per doctor order. Demonstrated to pt how to change at home. Answered all questions. Supplies given to pt for future changes
--- NOTE | 2020-12-16 17:14 | NUR ---
Discharge Verbal and written discharge instructions given to pt. Pt verbalized understanding. All questions answered. IV removed, pt tolerated well
--- NOTE | 2020-12-16 19:21 | NUR ---
D/C Patient As per pt ,Patient received discharge papers along with instructions from dayshift.IV was already taken out , no active bleeding noticed ;ID band removed; Exit Care provided. Patient and verbalized understanding. Patient in stable condition. All belongings sent with patient.
== END 2020-12-16 19:21 | disposition home or self-care (01) | DRG 418 ==
LOC: SED 17:41 → STU 20:39 → SMU 12-12 17:34
PROVIDERS: ADMIT Family Medicine; ATTEND Family Medicine
PROC: 5A09357 Assistance with Respiratory Ventilation, Less than 24 Consecutive Hours, Continuous Positive Airway Pressure (ICD-10-PCS; 2020-12-12)
PROC: 5A09357 Assistance with Respiratory Ventilation, Less than 24 Consecutive Hours, Continuous Positive Airway Pressure (ICD-10-PCS; 2020-12-15)
PROC: 0FT44ZZ Resection of Gallbladder, Percutaneous Endoscopic Approach (ICD-10-PCS; principal; 2020-12-15 12:00)
PROC: 5A09357 Assistance with Respiratory Ventilation, Less than 24 Consecutive Hours, Continuous Positive Airway Pressure (ICD-10-PCS; 2020-12-16)
DX: K85.10 Biliary acute pancreatitis without necrosis or infection (principal); K81.0 Acute cholecystitis; Z68.42 Body mass index [BMI] 45.0-49.9, adult; E66.01 Morbid (severe) obesity due to excess calories; E78.5 Hyperlipidemia, unspecified; I10 Essential (primary) hypertension; K76.0 Fatty (change of) liver, not elsewhere classified; F41.9 Anxiety disorder, unspecified; G47.33 Obstructive sleep apnea (adult) (pediatric); N40.0 Benign prostatic hyperplasia without lower urinary tract symptoms; Z86.16 Personal history of COVID-19; Z96.612 Presence of left artificial shoulder joint; Z96.651 Presence of right artificial knee joint; Z20.822 Contact with and (suspected) exposure to COVID-19; Z88.0 Allergy status to penicillin; Z79.82 Long term (current) use of aspirin; Z87.01 Personal history of pneumonia (recurrent); Z79.899 Other long term (current) drug therapy
CPT/HCPCS: 36415; 71045; 71275; 74181; 76376; 76700-TC; 80053; 80074; 80076; 81000-TC; 82150-TC; 82962; 83690-TC; 83735-TC; 84100-TC; 84478-TC; 84484; 85025; 85379; 85610-TC; 85730-TC; 86886; 86900; 86901; 87081; 88304; 93005; 94660; 94760; 96361; 96374; 96375; 96376; C1727; C9113; C9399; G0378; J0696; J1100; J1170; J1815; J1885; J1956; J2001; J2250; J2270; J2405; J2704; J3010; J3475; J3480; J3490; J7030; J7120; Q9967

== ENCOUNTER 2021-06-17 06:04 | Emergency (ER) | payer OTHER ==
[~2021-06-17] VITALS: Ht 154.9 cm; Wt 108.9 kg
[2021-06-17 06:04] VITALS: BP_SYST 148
[~2021-06-17 06:04] MED LIST changes: +LISI40TA13 PO; -LISI40TA4 PO; +SERT-436 PO; -SERT50TA12 PO; +TAMS-11 PO
[2021-06-17] MEDS ORDERED: MORPHINE 4 MG INJ. 4 MG/ML VIAL IVP ONE ×2 (07:00→07:15)
[2021-06-17 10:19] LABS: BASOPHILS % (AUTO) 0.5 % (0.0-2.0); EOSINOPHILS # (AUTO) 0.1 K/uL (0.0-0.4); EOSINOPHILS % (AUTO) 1.4 % (0.0-4.0); HEMATOCRIT 37.3 % (36-54); HEMOGLOBIN 12.4 g/dL (14.0-18.0); LYMPHOCYTES # (AUTO) 1.3 K/uL (1.0-5.5); LYMPHOCYTES % (AUTO) 25.5 % (20.5-51.5); MEAN CORPUSCULAR HEMOGLOBIN 29 pg (27-31); MEAN CORPUSCULAR HGB CONC 33 % (32-36); MEAN CORPUSCULAR VOLUME 88 fL (79.0-98.0); MONOCYTES # (AUTO) 0.3 K/uL (0.0-1.0); MONOCYTES % (AUTO) 4.9 % (1.7-9.3); NEUTROPHILS # (AUTO) 3.5 K/uL (1.8-7.7); NEUTROPHILS % (AUTO) 67.7 % (40.0-70.0); PLATELET COUNT (AUTO) 214 K/uL (130-430); RED BLOOD CELL COUNT(AUTO) 4.27 MIL/uL (4.2-6.2); RED CELL DISTRIBUTION WIDTH 17.3 % (9.0-15.0); WHITE BLOOD COUNT (AUTO) 5.1 K/uL (4.8-10.8)
[2021-06-17 10:32] LABS: ANION GAP 10 (5-15); CALCIUM 8.8 mg/dL (8.4-11.0); CHLORIDE 109 mmol/L (98-107); CREATININE 0.81 mg/dL (0.55-1.30); GLUCOSE 94 mg/dL (70-99); POTASSIUM 3.9 mmol/L (3.5-5.1); SODIUM SERUM 143 mmol/L (136-145); UREA NITROGEN, BLOOD 18 mg/dL (8-21)
[2021-06-17 10:35] LABS: GFR AFRICAN AMERICAN 123 mL/min (>90)
[2021-06-17] MEDS ORDERED: HYDR-3917 PO (11:17)
[2021-06-17 12:00] VITALS: BP_SYST 156
== END 2021-06-17 12:00 | disposition home or self-care (01) ==
LOC: SED 06:04
DX: M79.605 Pain in left leg (principal); R07.89 Other chest pain; I10 Essential (primary) hypertension; J44.9 Chronic obstructive pulmonary disease, unspecified; Z88.0 Allergy status to penicillin; Z79.899 Other long term (current) drug therapy
CPT/HCPCS: 36415; 71045; 73502; 80048; 84484; 85025; 93005; 93971; 96374; 99285; J2270

== ENCOUNTER 2021-06-19 10:24 | Outpatient (CLI) | payer OTHER ==
[~2021-06-19 10:24] MED LIST changes: +HYDR-3917 PO
== END 2021-06-19 19:28 | disposition home or self-care (01) ==
LOC: SMI 10:24
PROVIDERS: ATTEND Family Medicine
DX: M47.26 Other spondylosis with radiculopathy, lumbar region (principal); M51.16 Intervertebral disc disorders with radiculopathy, lumbar region; M47.817 Spondylosis without myelopathy or radiculopathy, lumbosacral region; M89.38 Hypertrophy of bone, other site; M48.061 Spinal stenosis, lumbar region without neurogenic claudication
CPT/HCPCS: 72148

== ENCOUNTER 2021-07-07 05:18 | Emergency (ER) | payer OTHER ==
[~2021-07-07] VITALS: Ht 154.9 cm; Wt 108.9 kg
[2021-07-07 05:25] VITALS: BP_SYST 141
[2021-07-07] MEDS ORDERED: MORPHINE 4 MG INJ. 4 MG/ML VIAL IM ONE (05:45)
[2021-07-07] MEDS ORDERED: KETOROLAC TROMETHAMINE 60 MG/2 ML VIAL IM ONE (05:45)
[2021-07-07 08:51] LABS: BASOPHILS % (AUTO) 0.6 % (0.0-2.0); EOSINOPHILS % (AUTO) 0.7 % (0.0-4.0); HEMATOCRIT 39.2 % (36-54); HEMOGLOBIN 12.7 g/dL (14.0-18.0); LYMPHOCYTES # (AUTO) 1.2 K/uL (1.0-5.5); LYMPHOCYTES % (AUTO) 17.8 % (20.5-51.5); MEAN CORPUSCULAR HEMOGLOBIN 28 pg (27-31); MEAN CORPUSCULAR HGB CONC 32 % (32-36); MEAN CORPUSCULAR VOLUME 87 fL (79.0-98.0); MONOCYTES # (AUTO) 0.4 K/uL (0.0-1.0); MONOCYTES % (AUTO) 5.6 % (1.7-9.3); NEUTROPHILS # (AUTO) 4.9 K/uL (1.8-7.7); NEUTROPHILS % (AUTO) 75.3 % (40.0-70.0); PLATELET COUNT (AUTO) 225 K/uL (130-430); RED CELL DISTRIBUTION WIDTH 16.9 % (9.0-15.0); WHITE BLOOD COUNT (AUTO) 6.5 K/uL (4.8-10.8)
[2021-07-07 09:04] LABS: CREATININE 0.96 mg/dL (0.55-1.30); POTASSIUM 4.2 mmol/L (3.5-5.1)
[2021-07-07 09:15] LABS: ALBUMIN 3.1 g/dL (3.4-4.8); TOTAL BILIRUBIN 1.2 mg/dL (0.0-1.0)
[2021-07-07] MEDS ORDERED: TRAM50TA PO (09:22)
[2021-07-07 09:39] VITALS: BP_SYST 113
== END 2021-07-07 09:39 | disposition home or self-care (01) ==
LOC: SED 05:18
DX: R10.9 Unspecified abdominal pain (principal); I10 Essential (primary) hypertension; J44.9 Chronic obstructive pulmonary disease, unspecified; Z79.899 Other long term (current) drug therapy; Z88.0 Allergy status to penicillin
CPT/HCPCS: 36415; 76700; 80053; 81002; 83690; 85025; 96372; 99284; J1885; J2270

== ENCOUNTER 2021-07-18 14:00 | Emergency (ER) | payer OTHER ==
[~2021-07-18] VITALS: Ht 180.3 cm; Wt 106.6 kg
[~2021-07-18 14:00] MED LIST changes: +TRAM50TA PO
[2021-07-18 14:40] VITALS: BP_SYST 140
--- NOTE | 2021-07-18 16:45 | NUR ---
ER DR. TENORIO AT THE BEDSIDE EXAMINING PT
--- NOTE | 2021-07-18 16:46 | NUR ---
Patient to ER bed H2 to gown for evaluation. Side rails up.
--- NOTE | 2021-07-18 17:00 | NUR ---
PT CAME TO ER C/O LEFT KNEE PAIN X 1 WEEK. PT WAS SEEN AT THIS ER 07/07/21 FOR LEFT KNEE EXAM AFTER HITTING KNEE AND HAVING CONSTANT PAIN. PT IS AMBULATORY, AAOX4, V/S STABLE
--- NOTE | 2021-07-18 18:00 | NUR ---
PROVIDED WITH ICE PACK FOR COMFORT
--- NOTE | 2021-07-18 19:03 | NUR ---
KNEE IMMOBILIZER IN APPROPRIATE SIZE IS NOT IN STOCK. ER DR TENORIO MADE AWARE, STATES OK TO WRAP IN REZA WRAP FOR IMMOBILIZATION.
[2021-07-18 19:11] VITALS: BP_SYST 140
--- NOTE | 2021-07-18 19:12 | NUR ---
Patient given written and verbal discharge instructions and verbalizes understanding. ER MD discussed with patient the results and treatment provided. Patient in stable condition. ID arm band removed. NO Rx given. Patient educated on pain management and to follow up with PMD. Pain Scale 0/10. Opportunity for questions provided and answered. Medication side effect fact sheet provided.
== END 2021-07-18 19:12 | disposition home or self-care (01) ==
LOC: SED 14:00
DX: S83.412A Sprain of medial collateral ligament of left knee, initial encounter (principal); I10 Essential (primary) hypertension; J44.9 Chronic obstructive pulmonary disease, unspecified; Z79.899 Other long term (current) drug therapy; Z88.0 Allergy status to penicillin; X50.9XXA Other and unspecified overexertion or strenuous movements or postures, initial encounter; Y93.89 Activity, other specified; Y92.89 Other specified places as the place of occurrence of the external cause; Y99.8 Other external cause status
CPT/HCPCS: 73564; 99283

== ENCOUNTER 2021-07-29 19:19 | Emergency (ER) | payer OTHER ==
[2021-07-30] MEDS ORDERED: HYDROcodone/ACETAMIN 5-325 MG TAB (NORCO/ VICODIN) ONE (00:04)
== END 2021-07-30 04:13 | disposition home or self-care (01) ==
LOC: SED 19:19
DX: S82.142A Displaced bicondylar fracture of left tibia, initial encounter for closed fracture (principal); I10 Essential (primary) hypertension; W18.39XA Other fall on same level, initial encounter; Y93.89 Activity, other specified; Y92.89 Other specified places as the place of occurrence of the external cause; Y99.8 Other external cause status
CPT/HCPCS: 73564; 73700-TC; 76376; 99284

== ENCOUNTER 2021-10-05 10:56 | Outpatient (CLI) | payer OTHER ==
[2021-10-05 12:00] LABS: BASOPHILS % (AUTO) 0.5 % (0.0-2.0); EOSINOPHILS # (AUTO) 0.1 K/uL (0.0-0.4); EOSINOPHILS % (AUTO) 1.1 % (0.0-4.0); HEMATOCRIT 43.3 % (36-54); LYMPHOCYTES # (AUTO) 1.6 K/uL (1.0-5.5); LYMPHOCYTES % (AUTO) 26.7 % (20.5-51.5); MEAN CORPUSCULAR HEMOGLOBIN 28 pg (27-31); MEAN CORPUSCULAR HGB CONC 33 % (32-36); MEAN CORPUSCULAR VOLUME 88 fL (79.0-98.0); MONOCYTES # (AUTO) 0.5 K/uL (0.0-1.0); MONOCYTES % (AUTO) 8.9 % (1.7-9.3); NEUTROPHILS # (AUTO) 3.7 K/uL (1.8-7.7); NEUTROPHILS % (AUTO) 62.8 % (40.0-70.0); PLATELET COUNT (AUTO) 218 K/uL (130-430); RED BLOOD CELL COUNT(AUTO) 4.95 MIL/uL (4.2-6.2); RED CELL DISTRIBUTION WIDTH 16.7 % (9.0-15.0); WHITE BLOOD COUNT (AUTO) 5.9 K/uL (4.8-10.8)
[2021-10-05 12:20] LABS: BILIRUBIN,URINE NEGATIVE (NEGATIVE); BLOOD, URINE 1+ (NEGATIVE); CLARITY/URINE CLEAR (CLEAR); COLOR,URINE YELLOW (YELLOW); GLUCOSE,URINE NEGATIVE (NEGATIVE); KETONES,URINE NEGATIVE (NEGATIVE); LEUKOCYTE ESTERASE ,URINE NEGATIVE (NEGATIVE); NITRITE, URINE NEGATIVE (NEGATIVE); PROTEIN URINE NEGATIVE (NEGATIVE); UROBILINOGEN,URINE 0.2 (0.2-1.0)
[2021-10-05 12:34] LABS: ALBUMIN 3.6 g/dL (3.4-4.8); CREATININE 0.81 mg/dL (0.55-1.30); POTASSIUM 3.8 mmol/L (3.5-5.1); THYROID STIMULATING HORMONE 1.18 uIu/mL (0.36-3.74); TOTAL BILIRUBIN 0.7 mg/dL (0.0-1.0)
[2021-10-05 13:20] LABS: BACTERIA,URINE RARE /HPF (None Seen); WBC,URINE 0-3 /HPF (0-3)
[2021-10-05 13:21] LABS: MUCUS,URINE 1+ /LPF (None Seen)
[2021-10-06 08:06] LABS: % FREE PSA 14.8 % (.); FOLATE (FOLIC ACID) >20.0 ng/mL (>3.0); FREE PSA 1.35 ng/mL; TRIIODOTHYRONINE, FREE 2.9 pg/mL (2.0-4.4)
== END 2021-10-05 20:18 | disposition home or self-care (01) ==
LOC: SLB 10:56
PROVIDERS: ATTEND Family Medicine
DX: I10 Essential (primary) hypertension (principal); N40.1 Benign prostatic hyperplasia with lower urinary tract symptoms; E66.9 Obesity, unspecified
CPT/HCPCS: 36415; 80053; 80061; 81000; 82306; 82607; 82746; 84153; 84439; 84443; 84481; 85025

== ENCOUNTER 2023-01-13 19:58 | Emergency (ER) | payer OTHER ==
[~2023-01-13] VITALS: Ht 154.9 cm; Wt 106.6 kg
[2023-01-13 20:58] VITALS: BP_SYST 165
--- NOTE | 2023-01-13 21:06 | NUR ---
Patient triaged and placed in waiting room. VSS and patient appears in no acute distress at this time. Accompanied by self, awaiting available bed, and MD notified of need for MSE.
--- NOTE | 2023-01-13 21:09 | NUR ---
Pt bib self from home, ambulated to [facility]. Pt A&Ox4, able to make needs known. Pt c/o right flank pain x5 days. Pt rates pain 8/10. Pt states he fell 5 days ago. Pt denies N/V/D, Fever/Chills. Pt denies chest pain and SOB. Safety measures in place.
[2023-01-13] MEDS ORDERED: LIDOCAINE PATCH 5% 1 EA TP ONE (21:30)
[2023-01-13] MEDS ORDERED: KETOROLAC TROMETHAMINE 30 MG VIAL IM ONE (21:30)
--- NOTE | 2023-01-13 21:31 | NUR ---
ER Dr. Gaspar at bedside examining patient.
[2023-01-13 22:32] LABS: BILIRUBIN,URINE NEGATIVE (NEGATIVE); BLOOD, URINE 2+ (NEGATIVE); CLARITY/URINE CLEAR (CLEAR); COLOR,URINE YELLOW (YELLOW); GLUCOSE,URINE NEGATIVE (NEGATIVE); KETONES,URINE NEGATIVE (NEGATIVE); LEUKOCYTE ESTERASE ,URINE NEGATIVE (NEGATIVE); NITRITE, URINE NEGATIVE (NEGATIVE); PH,URINE 5.5 (5.0-8.0); PROTEIN URINE NEGATIVE (NEGATIVE); UROBILINOGEN,URINE 0.2 (0.2-1.0)
[2023-01-13 22:38] LABS: BACTERIA,URINE None Seen /HPF (None Seen); MUCUS,URINE 1+ /LPF (None Seen); WBC,URINE 0-3 /HPF (0-3)
[2023-01-14] MEDS ORDERED: NAPR220C15 PO (00:17)
[2023-01-14] MEDS ORDERED: LIDO1ADH22 TP (00:17)
[2023-01-14] MEDS ORDERED: DICL20GE TP (00:17)
== END 2023-01-14 00:41 | disposition home or self-care (01) ==
LOC: SED 19:58
DX: S20.211A Contusion of right front wall of thorax, initial encounter (principal); J44.9 Chronic obstructive pulmonary disease, unspecified; I10 Essential (primary) hypertension; Z88.0 Allergy status to penicillin; Z79.899 Other long term (current) drug therapy; W11.XXXA Fall on and from ladder, initial encounter; Y93.89 Activity, other specified; Y92.89 Other specified places as the place of occurrence of the external cause; Y99.8 Other external cause status
CPT/HCPCS: 99284; 81000; 71100; 72080; 96372; J1885

== ENCOUNTER 2023-05-24 10:48 | Emergency (ER) | payer OTHER ==
[~2023-05-24] VITALS: Ht 154.9 cm; Wt 108.9 kg
[~2023-05-24 10:48] MED LIST changes: +DICL20GE TP; +LIDO1ADH22 TP; +NAPR220C15 PO
[2023-05-24 11:04] VITALS: BP_SYST 151; PULSE 81; RESP 18; TEMP 97.9; O2SAT 98
[2023-05-24 11:44] LABS: BASOPHILS % (AUTO) 0.5 % (0.0-2.0); EOSINOPHILS # (AUTO) 0.1 K/uL (0.0-0.4); EOSINOPHILS % (AUTO) 2.3 % (0.0-4.0); HEMATOCRIT 39.2 % (36-54); HEMOGLOBIN 12.7 g/dL (14.0-18.0); LYMPHOCYTES # (AUTO) 1.5 K/uL (1.0-5.5); LYMPHOCYTES % (AUTO) 26.6 % (20.5-51.5); MEAN CORPUSCULAR HEMOGLOBIN 29 pg (27-31); MEAN CORPUSCULAR HGB CONC 32 % (32-36); MEAN CORPUSCULAR VOLUME 90 fL (79.0-98.0); MONOCYTES # (AUTO) 0.5 K/uL (0.0-1.0); MONOCYTES % (AUTO) 9.3 % (1.7-9.3); NEUTROPHILS # (AUTO) 3.4 K/uL (1.8-7.7); NEUTROPHILS % (AUTO) 61.3 % (40.0-70.0); PLATELET COUNT (AUTO) 236 K/uL (130-430); RED BLOOD CELL COUNT(AUTO) 4.37 MIL/uL (4.2-6.2); RED CELL DISTRIBUTION WIDTH 16.1 % (9.0-15.0); WHITE BLOOD COUNT (AUTO) 5.6 K/uL (4.8-10.8)
[2023-05-24 11:47] LABS: BILIRUBIN,URINE 1+ (NEGATIVE); BLOOD, URINE 2+ (NEGATIVE); CLARITY/URINE CLEAR (CLEAR); COLOR,URINE YELLOW (YELLOW); GLUCOSE,URINE NEGATIVE (NEGATIVE); KETONES,URINE NEGATIVE (NEGATIVE); LEUKOCYTE ESTERASE ,URINE NEGATIVE (NEGATIVE); NITRITE, URINE NEGATIVE (NEGATIVE); PH,URINE 5.5 (5.0-8.0); PROTEIN URINE NEGATIVE (NEGATIVE); UROBILINOGEN,URINE 0.2 (0.2-1.0)
[2023-05-24 11:55] LABS: CALCIUM 8.5 mg/dL (8.4-11.0); POTASSIUM 4.2 mmol/L (3.5-5.1)
[2023-05-24 12:00] LABS: TOTAL BILIRUBIN 0.8 mg/dL (0.0-1.0)
[2023-05-24 12:00] LABS: BACTERIA,URINE None Seen /HPF (None Seen); MUCUS,URINE 1+ /LPF (None Seen); WBC,URINE 0-3 /HPF (0-3)
[2023-05-24] MEDS ORDERED: TRAM50TA2 PO (13:18)
[2023-05-24 13:41] VITALS: BP_SYST 134; PULSE 79; RESP 18; TEMP 98.1; O2SAT 96
== END 2023-05-24 13:41 | disposition home or self-care (01) ==
LOC: SED 10:48
DX: R10.11 Right upper quadrant pain (principal); R05.9 Cough, unspecified; J44.9 Chronic obstructive pulmonary disease, unspecified; I10 Essential (primary) hypertension; Z88.0 Allergy status to penicillin; Z79.899 Other long term (current) drug therapy
CPT/HCPCS: 36415; 76376; 80053; 81000; 83690; 85025; 99284

== ENCOUNTER 2023-07-20 07:49 | Day surgery (SDC) | payer OTHER ==
[~2023-07-20] VITALS: Ht 154.9 cm; Wt 113.4 kg
[~2023-07-20 07:49] MED LIST changes: +TRAM50TA2 PO
[2023-07-20] MEDS ORDERED: MIDAZOLAM HCL 5 MG/5 ML VIAL ONE ×2 (08:05→11:06)
[2023-07-20] MEDS ORDERED: MEPERIDINE 100 MG INJ. 100 MG/ML VIAL ONE (08:06)
[2023-07-20 08:38] VITALS: O2SAT 95
[2023-07-20 13:32] VITALS: BP_SYST 133; PULSE 70; RESP 18
== END 2023-07-20 12:30 | disposition home or self-care (01) ==
LOC: SDS 07:49 → SMU 07:50 → SDS 12:30
PROVIDERS: ATTEND Internal Medicine
DX: Z12.11 Encounter for screening for malignant neoplasm of colon (principal); D12.2 Benign neoplasm of ascending colon; D12.3 Benign neoplasm of transverse colon; K57.30 Diverticulosis of large intestine without perforation or abscess without bleeding; K64.8 Other hemorrhoids; I10 Essential (primary) hypertension; Z88.0 Allergy status to penicillin; Z79.899 Other long term (current) drug therapy
CPT/HCPCS: 45380; 45385; 99152; 88305; G0378; J2250; J2175

== ENCOUNTER 2024-01-21 02:43 | Emergency (ER) | payer OTHER ==
[~2024-01-21] VITALS: Ht 154.9 cm; Wt 108.9 kg
[2024-01-21 02:54] VITALS: BP_SYST 147; PULSE 86; RESP 18; TEMP 98.6; O2SAT 93
[2024-01-21] MEDS: LIDOCAINE/EPI 1% 1:100000 20 ML VIAL INJ ONE (03:47)
[2024-01-21] MEDS ORDERED: BACITRACIN 1 GM OINT TP ONE (04:03)
[2024-01-21 04:50] VITALS: BP_SYST 147; PULSE 86; RESP 18; TEMP 98.6; O2SAT 93
[2024-01-21] MEDS: BACITRACIN 1 GM OINT TP ONE (04:53)
== END 2024-01-21 04:50 | disposition home or self-care (01) ==
LOC: SED 02:43
DX: S01.112A Laceration without foreign body of left eyelid and periocular area, initial encounter (principal); I10 Essential (primary) hypertension; K21.9 Gastro-esophageal reflux disease without esophagitis; J44.9 Chronic obstructive pulmonary disease, unspecified; Z90.49 Acquired absence of other specified parts of digestive tract; Z98.890 Other specified postprocedural states; Z88.0 Allergy status to penicillin; W06.XXXA Fall from bed, initial encounter; Y93.84 Activity, sleeping; Y92.092 Bedroom in other non-institutional residence as the place of occurrence of the external cause; Y99.8 Other external cause status
CPT/HCPCS: 70486; 99284

== ENCOUNTER 2024-02-28 12:21 | Outpatient (CLI) | payer OTHER ==
[2024-02-28 12:57] LABS: BASOPHILS # (AUTO) 0.1 K/uL (0.0-0.2); BASOPHILS % (AUTO) 0.8 % (0.0-2.0); EOSINOPHILS # (AUTO) 0.1 K/uL (0.0-0.4); EOSINOPHILS % (AUTO) 1.4 % (0.0-4.0); LYMPHOCYTES # (AUTO) 1.7 K/uL (1.0-5.5); MEAN CORPUSCULAR HEMOGLOBIN 30 pg (27-31); MEAN CORPUSCULAR HGB CONC 33 % (32-36); MEAN CORPUSCULAR VOLUME 88 fL (79.0-98.0); MONOCYTES # (AUTO) 0.6 K/uL (0.0-1.0); MONOCYTES % (AUTO) 8.6 % (1.7-9.3); NEUTROPHILS # (AUTO) 4.4 K/uL (1.8-7.7); NEUTROPHILS % (AUTO) 64.2 % (40.0-70.0); PLATELET COUNT (AUTO) 250 K/uL (130-430); RED BLOOD CELL COUNT(AUTO) 4.07 MIL/uL (4.2-6.2); RED CELL DISTRIBUTION WIDTH 15.8 % (9.0-15.0); WHITE BLOOD COUNT (AUTO) 6.9 K/uL (4.8-10.8)
[2024-02-28 13:16] LABS: ALBUMIN 2.9 g/dL (3.4-4.8); CALCIUM 8.6 mg/dL (8.4-11.0); CREATININE 0.89 mg/dL (0.55-1.30); POTASSIUM 3.3 mmol/L (3.5-5.1); TOTAL BILIRUBIN 0.5 mg/dL (0.0-1.0); TOTAL PROTEIN, SERUM 7.2 g/dL (6.4-8.3)
== END 2024-02-28 18:54 | disposition home or self-care (01) ==
LOC: SLB 12:21
PROVIDERS: ATTEND Family Medicine
DX: Z01.812 Encounter for preprocedural laboratory examination (principal)
CPT/HCPCS: 36415; 80053; 85025

== ENCOUNTER 2024-05-14 14:32 | Outpatient (CLI) | payer OTHER | END 2024-05-14 19:44 | disposition home or self-care (01) | LOC: SRD 14:32 | PROVIDERS: ATTEND Family Medicine | DX: M19.042 Primary osteoarthritis, left hand (principal); M19.041 Primary osteoarthritis, right hand ==